=== PATIENT | male | born 1945 | race Two or more races ===

== ENCOUNTER 2016-08-06 08:45 | Day surgery (SDC) | payer OTHER ==
[~2016-08-06] VITALS: Ht 157.5 cm; Wt 78.0 kg
[2016-08-06 09:06] VITALS: BP 164/72
[2016-08-06 11:39] VITALS: BP 136/67
== END 2016-08-06 11:45 | disposition home or self-care (01) ==
LOC: DS 08:45 → GI 10:45 → DS 11:45 → GI 12:30 → OR 12:30
PROVIDERS: Internal Medicine Gastroenterology
PROC: 0DJD8ZZ Inspection of Lower Intestinal Tract, Via Natural or Artificial Opening Endoscopic (ICD-10-PCS; principal; 2016-08-06 10:45)
DX: Z12.11 Encounter for screening for malignant neoplasm of colon (principal); K57.30 Diverticulosis of large intestine without perforation or abscess without bleeding; K64.8 Other hemorrhoids; Z68.27 Body mass index [BMI] 27.0-27.9, adult
CPT/HCPCS: 45378; J1200; J1610; J2250; J2310; J3010; J3490